=== PATIENT | female | born 2000 | race African-American/Black ===

== ENCOUNTER 2018-02-02 21:46 | Emergency (ER) | payer MEDICARE, OTHER ==
--- NOTE | 2018-02-02 22:21 | ED Physician Documentation ---
General Adult - HISTORIAN Historian: patient, parent (mom) - HPI Stated Complaint: Bloody Nose Chief Complaint: General Adult Additional Information: Picked her nose and it bled. Stopped for a while, but began again. Had nose bleeds 2 years ago. No modifying factors or associated signs. - ROS CONST: no problems - PAST HX Past History: none, other (anxiety) Surgeries/Procedures: other (tonsillectomy) Allergies/Adverse Reactions: Allergies Allergy/AdvReac Type Severity Reaction Status Date / Time No Known Allergies Allergy Verified 02/02/18 21:57 Home Medications: Ambulatory Orders Medication Instructions Recorded FLUoxetine HCL [Prozac] 5 mg PO D 02/02/18 - SOCIAL HX Smoking History: non-smoker Alcohol Use: none Drug Use: none - FAMILY HX Family History: No - VITAL SIGNS Vital Signs: Vital Signs Temp Pulse Resp BP Pulse Ox 98.4 F 111 H 16 126/69 100 02/02/18 22:00 02/02/18 22:00 02/02/18 22:00 02/02/18 22:00 02/02/18 22:00 - REVIEWED ASSESSMENTS Nursing Assessment Reviewed: Yes Vitals Reviewed: Yes Progress - Progress Progress: Afrin and cotton ball packing. ED Results Lab/Radiology - Orders Orders: ED Orders Category Date Time Status Oxymetazoline HCl [Afrin 0.05%] Med 02/02/18 22:13 Once 6 spray NS NOW ONE General Adult Physical Exam - PHYSICAL EXAM GENERAL APPEARANCE: mild distress EENT: eye inspection normal, pharynx normal, other (3 mm abrasion in nasal cavity, oozing blood) NECK: normal inspection, supple RESPIRATORY: no resp distress BACK: normal inspection SKIN: warm/dry, normal color EXTREMITIES: normal range of motion NEURO: CN's nml as tested, motor nml, sensation nml Discharge Clincal Impression: Nosebleed Referrals: Crow Rodas MD [Primary Care Provider] - 2 Days Condition: Good Disposition: 01 HOME, SELF-CARE Decision to Admit: NO Decision Time: 20:35
[2018-02-02] MEDS: OXYMETAZOLINE HCL 0.05% NASAL SPRAY NS ONE (22:23)
[2018-02-02 22:41] VITALS: BP 123/85
== END 2018-02-02 22:44 | disposition home or self-care (01) ==
LOC: ED 21:46
DX: R04.0 Epistaxis (principal)
CPT/HCPCS: 99282